=== PATIENT | female | born 1965 | race Caucasian/White ===

== ENCOUNTER 2023-10-23 23:04 | Emergency (ER) | payer OTHER, SELFPAY ==
--- NOTE | ~2023-10-23 | XR_ITS ---
EXAMINATION: XR CHEST CLINICAL INFORMATION: Chest pain. COMPARISON: None available at the moment of this dictation. TECHNIQUE: 2 views of the chest were obtained. FINDINGS: Prominent cardiomediastinal silhouette. Mild central vasculature congestion. No focal consolidation, pleural effusion or pneumothorax. No pulmonary edema. Thoracolumbar shanon with a gap and posterior displacement at the level of the mid thoracic spine best visualized on the lateral view. XR/XR chest 2V IMPRESSION: 1. Prominent cardiomediastinal silhouette with mild central vasculature congestion. 2. No focal consolidation. Clear pleural spaces. 3. Thoracolumbar shanon with a gap and posterior displacement at the level of the mid thoracic spine concerning for hardware fracture/failure. No prior studies are available for comparison at the moment of this examination. Recommend clinical correlation to determine further management.
[2023-10-23 23:30] VITALS: BP 152/86; BP 156/71; PULSE 87; RESP 20; TEMP 36.8; O2SAT 95; O2SAT 98; BMI 33.5
--- NOTE | 2023-10-23 23:32 | ED.GENADULT ---
HPI - General Adult General Chief complaint: Upper Respiratory Symptoms Stated complaint: sob Time Seen by Provider: 10/23/23 23:32 Source: patient, RN notes reviewed and other (Facility records) Limitations: no limitations History of Present Illness HPI narrative: 58-year-old female who has a history of hypertension, hypothyroidism, asthma, insomnia, presents from [facility] where she is currently being evaluated for suicidal ideation. Patient reports that she had generalized body aches, chest pain shortness of breath that began this morning. She was given a respiratory treatment as well as have an EKG performed. Because her symptoms persisted, she presents to the emergency department at this time. She does have a history of cocaine use as well as tobacco use. Currently she is complaining of shortness of breath and chest pain. No change with exertion. Related Data Previous Rx's Medication Instructions Recorded benzonatate 100 mg capsule 100 mg PO TID PRN cough #20 caps 10/24/23 Allergies Allergy/AdvReac Type Severity Reaction Status Date / Time No Known Allergies Allergy Verified 10/23/23 23:27 Review of Systems Constitutional: Constitutional: Reports body ache(s), Denies chills, Denies fever(s) and Denies headache(s) Eyes: Eyes: Denies change in vision and Denies other (No redness.) ENT: Denies headache(s), Denies nasal congestion, Denies nasal discharge, Denies neck pain and Denies sore throat Cardiovascular: Cardiovascular: Denies chest pain, Denies palpitations, Reports dyspnea, Denies dyspnea on exertion and Denies orthopnea Respiratory: Respiratory: Denies cough, Reports dyspnea and Denies dyspnea on exertion Gastrointestinal: Gastrointestinal: Denies abdominal pain, Denies melena, Denies hematochezia, Denies diarrhea, Denies nausea and Denies vomiting Genitourinary: Genitourinary: Denies dysuria and Denies urinary urgency Musculoskeletal: Musculoskeletal: Denies back pain, Denies muscle weakness, Denies neck pain and Denies numbness Integumentary/Breasts: Skin/Breast: Denies rash Neurologic: Denies headache(s), Denies focal weakness and Denies numbness Psychiatric: Psychiatric: Denies depression Endocrine: Endocrine: Denies palpitations PMFSH Past Medical History Source: old records reviewed Onset Date is defined in the Problem List Problems that require an onset date and time if occurred within 24 hrs of arrival to the ED Aortic Dissection and Rupture; Neurologic impairment; Cardiopulmonary Arrest; Endotracheal Intubation; Insertion or Replacement of Mechanical Circulatory Assist Device Social History Social History Smoked in Last 30 Days: No Advance Directives: No Advance Directives Information Provided: Yes Patient : No Physical Exam ED Vital Signs: Vital Signs - 24 hr 10/23/23 23:30 10/24/23 00:00 10/24/23 02:14 Temperature 98.2 F 101.9 F H Pulse Rate 87 87 96 Respiratory Rate 20 20 21 H Blood Pressure 156/71 H 143/78 H Pulse Oximetry 95 93 Oxygen Delivery Method Room Air Room Air 10/24/23 02:42 Temperature Pulse Rate Respiratory Rate Blood Pressure Pulse Oximetry 95 Oxygen Delivery Method Room Air BMI result Body Mass Index 33.5 Speaks full clear sentences Const General: cooperative Resp Other: Diminished in the bases bilaterally with fine wheezes. Clear in the apices. Cardio Rate: regular rate Rhythm: regular rhythm GI Other: Abdomen is soft without tenderness throughout. No peritoneal signs. Extrem Other: No calf tenderness or pedal edema Course Course Course Narrative: 12:30 a.m. patient is viral swab is positive for influenza A. 1:15 a.m. reviewed all labs and imaging with the patient. No acute process except for influenza A. Chest x-ray demonstrates possible hardware failure with a shanon that the patient has in her back. I have discussed this with the patient. She reports that she is aware of this and it has been a chronic condition and she is followed by a physician at [facility]. She reports that she has not a surgical candidate for this. She has chronic back pain due to her back condition. The patient is otherwise hemodynamically stable. Good improvement with respiratory treatment. Patient will be discharged back to [facility] so she may continue her treatment. Medications Administered Discontinued Medications Generic Name Dose Route Start Last Admin Trade Name Freq PRN Reason Stop Dose Admin Acetaminophen 650 mg 10/24/23 02:21 10/24/23 02:30 Acetaminophen 325 Mg Tablet PO 10/24/23 02:22 650 mg ONCE ONE Administration Albuterol Sulfate 2.5 mg 10/23/23 23:40 10/23/23 23:59 Albuterol Sulfate (0.083%) 2.5 Mg/3 Ml Vial.Neb INHALE 10/23/23 23:41 2.5 mg ONCE ONE Administration Benzonatate 100 mg 10/24/23 01:49 10/24/23 02:04 Benzonatate 100 Mg Capsule PO 10/24/23 01:50 100 mg ONCE ONE Administration Potassium Chloride 40 meq 10/24/23 00:52 10/24/23 01:32 Potassium Chloride Packet 20 Meq Packet PO 10/24/23 00:53 40 meq ONCE ONE Administration Medical Decision Making Medical Decision Making MDM Narrative: 58-year-old female presents from [facility] here for shortness of breath and chest pain. Patient with a history of asthma as well as chest pain. Check labs, EKG, chest x-ray. Viral swab. Respiratory treatment Differential Diagnosis Differential Diagnoses: The differential diagnosis associated with the presentation includes Pneumonia Bronchitis Viral syndrome including COVID or influenza Metabolic abnormality Dehydration Admission/Observation Consideration of admission/observation: Escalation of care including admission/observation considered Considered if clinically warranted Lab Data 10/24/23 00:20 10/24/23 00:20 Labs: Lab Results 10/24/23 Range/Units 00:20 WBC 7.7 (4.8-10.8) X10*3/uL RBC 4.18 L (4.20-5.50) X10*6/uL Hgb 12.4 (12.0-16.0) g/dl Hct 37.7 (37.0-47.0) % MCV 90.2 (80.0-98.0) fL MCH 29.7 (27.0-33.0) pg MCHC 32.9 (31.0-35.0) g/dl RDW 13.8 (11.0-16.0) % Plt Count 292 (160-400) X10*3/uL MPV 9.3 L (9.4-12.3) fL Immature Gran % (Auto) 0.5 H (0.0-0.4) % Neut % (Auto) 60.4 (45-73) % Lymph % (Auto) 19.7 L (20-40) % [place] % (Auto) 12.0 H (2-11) % Eos % (Auto) 6.7 H (0-4) % Baso % (Auto) 0.7 (0-2) % Lymph # (Auto) 1.5 (1.2-4.9) X10*3/uL [place] # (Auto) 0.9 (0.1-1.2) X10*3/uL Eos # (Auto) 0.5 H (0.0-0.4) X10*3/uL Baso # (Auto) 0.1 (0.0-0.2) X10*3/uL Abs Immat Gran (auto) 0.04 H (0.00-0.03) X10*3/uL Absolute Neuts (auto) 4.6 (2.0-8.3) x10*3/uL Absolute Nucleated RBC 0.000 (0.0-0.012) X10*3/uL Nucleated RBC % (auto) 0.0 (0.0-0.2) /100WBC Sodium 142 (135-145) mmol/L Potassium 3.1 L (3.3-5.1) mmol/L Chloride 103 (96-108) mmol/L Carbon Dioxide 28 (22-29) mmol/L Anion Gap 14 (12-20) BUN 21 H (9-16) mg/dL Creatinine 0.99 (0.5-1.4) mg/dL Estim Creat Clear Calc 60.2 Estimated GFR 58 Random Glucose 146 H (60-115) mg/dL Calcium 9.5 (8.4-10.2) mg/dL Troponin I High Sens 14.1 (<3.5-17.0) ng/L Urine Color Yellow Urine Appearance Clear Urine pH 5.5 (5.0-9.0) Ur Specific [place] 1.015 (1.005-1.025) Urine Protein Negative (Neg-Trace) mg/dL Urine Glucose (UA) Negative (Negative) mg/dL Urine Ketones Negative (Negative) mg/dL Urine Blood Negative (Negative) Urine Nitrite Negative (Negative) Ur Leukocyte Esterase Trace H (Negative) Urine RBC 0-2 (0-2) /HPF Urine WBC 0-5 (0-5) /HPF Ur Squamous Epith Cells 0-2 (0-2) /HPF Urine Bacteria 2+ (None Seen) Hyaline Casts 0-2 (0-2) /LPF COVID-19 (JACK) Negative (Negative) COVID-19 Clin Com See Note Influenza Type A (SOFIA) Positive A (Negative) Influenza Type B (SOFIA) Negative (Negative) Influenza A & B Note See Note Independent Interpretation I performed an independent interpretation of an: EKG (80 beats per minute without any acute ischemic changes.) Discharge Plan Discharge Clinical Impression: Influenza A Upper respiratory infection Qualifiers: Airway obstruction: without obstruction Patient Disposition: Home, Self-Care Instructions: Influenza (ED) Additional Instructions: Your viral test today is positive for influenza A. Your potassium was slightly low today. We gave you potassium by mouth. You may need to have this rechecked in the next week. Continue albuterol treatments as directed. Tylenol or ibuprofen for pain or fever. Follow-up with your primary care provider. Call this week to schedule a follow-up appointment. Return to the emergency department if you have any worsening of symptoms, or any concerns. Get well soon! Prescriptions: New benzonatate 100 mg capsule 100 mg PO TID PRN (Reason: cough) Qty: 20 0RF Interventions: ED Discharge Assessment Last Done: 10/24/23 03:54 Discharge Date/Time: 10/24/23 03:30 Print Language: Spanish
--- NOTE | 2023-10-23 23:40 | ECG_ITS ---
Test Reason : CHEST PAIN Blood Pressure : / mmHG Vent. Rate : 080 BPM Atrial Rate : 080 BPM P-R Int : 166 ms QRS Dur : 106 ms QT Int : 388 ms P-R-T Axes : 066 -03 056 degrees QTc Int : 447 ms Normal sinus rhythm Minimal voltage criteria for LVH, may be normal variant ( Penrose product ) Borderline ECG When compared with ECG of 25-NOV-2009 16:24, Nonspecific T wave abnormality now evident in Lateral leads Referred By: Jac Negron Electronically Signed By:SIVAN AMEZQUITA MD
[2023-10-23] MEDS: Albuterol Sulfate (0.083%) 2.5 MG/3 ML VIAL.NEB INHALE (23:59)
[2023-10-24] VITALS: PULSE 87; RESP 20; O2SAT 97
[2023-10-24 00:28] LABS: MANUAL DIFF FLAG NO
[2023-10-24 00:32] LABS: Basophils Absolute Auto 0.1 X10*3/uL (0.0-0.2); Basophils Percent Auto 0.7 % (0-2); Eosinophils Absolute Auto 0.5 X10*3/uL (0.0-0.4); Eosinophils Percent Auto 6.7 % (0-4); Hematocrit 37.7 % (37.0-47.0); Hemoglobin 12.4 g/dl (12.0-16.0); Imm Gran Abs Auto 0.04 X10*3/uL (0.00-0.03); Imm Gran Pct Auto 0.5 % (0.0-0.4); Lymphocytes Absolute Auto 1.5 X10*3/uL (1.2-4.9); Lymphocytes Percent Auto 19.7 % (20-40); Mean Corpuscular HGB Conc 32.9 g/dl (31.0-35.0); Mean Corpuscular Hemoglobin 29.7 pg (27.0-33.0); Mean Corpuscular Volume 90.2 fL (80.0-98.0); Mean Platelet Volume 9.3 fL (9.4-12.3); Monocytes Absolute Auto 0.9 X10*3/uL (0.1-1.2); Neutrophils Absolute Auto 4.6 x10*3/uL (2.0-8.3); Neutrophils Percent Auto 60.4 % (45-73); Platelet Count 292 X10*3/uL (160-400); Red Blood Count 4.18 X10*6/uL (4.20-5.50); Red Cell Distribution Width 13.8 % (11.0-16.0); White Blood Count 7.7 X10*3/uL (4.8-10.8)
[2023-10-24 00:33] LABS: Appearance Urine Clear; Color Urine Yellow; Glucose Urine UA Negative (Negative); Leukocyte Esterase Urine Trace (Negative); Nitrite Urine Negative (Negative); PH 5.5 (5.0-9.0); Specific Gravity - Urine 1.015 (1.005-1.025); UMIC TRIGGER UA YES; Urine Blood Negative (Negative); Urine Ketones Negative (Negative); Urine Protein Negative (Neg-Trace)
[2023-10-24 00:38] LABS: Bacteria Urine 2+ (None Seen); Hyaline Casts Urine 0-2 /LPF (0-2); RBC Urine 0-2 /HPF (0-2); Squamous Epithelial Cell Urine 0-2 /HPF (0-2); WBC Urine 0-5 /HPF (0-5)
[2023-10-24 00:41] LABS: COVID-19 Test Negative (Negative); IDNOW Serial# 6674DD1D
[2023-10-24 00:44] LABS: IDNOW Serial# 58CA691E; Influenza A Positive (Negative); Influenza B2 Negative (Negative)
[2023-10-24 00:45] LABS: Anion Gap 14 (12-20); Blood Urea Nitrogen 21 mg/dL (9-16); Carbon Dioxide 28 mmol/L (22-29); Chloride 103 mmol/L (96-108); Creatinine Clr Calc Pharmacy 60.2; Estimated Glomerular Filt Rate 58; Potassium 3.1 mmol/L (3.3-5.1); Sodium 142 mmol/L (135-145)
[2023-10-24 00:46] LABS: Calcium 9.5 mg/dL (8.4-10.2); Glucose Random 146 mg/dL (60-115)
[2023-10-24 00:50] LABS: Troponin-I High Sensitivity 14.1 ng/L (<3.5-17.0)
[2023-10-24] MEDS: Potassium Chloride Packet 20 MEQ PACKET 40 MEQ PO (01:32)
[2023-10-24] MEDS: Benzonatate 100 MG CAPSULE PO (02:04)
[2023-10-24 02:14] VITALS: BP 143/78; PULSE 96; RESP 21; TEMP 38.8; O2SAT 93
[2023-10-24] MEDS: Acetaminophen 325 MG TABLET 650 MG PO (02:30)
[2023-10-24 02:42] VITALS: PULSE 89; O2SAT 95
== END 2023-10-24 03:30 | disposition home or self-care (01) ==
PROVIDERS: Physician Assistant; Emergency Provider Emergency Medicine
DX: J10.1 Influenza due to other identified influenza virus with other respiratory manifestations (principal); R07.89 Other chest pain; R06.02 Shortness of breath; R45.851 Suicidal ideations; Z11.52 Encounter for screening for COVID-19; Z20.828 Contact with and (suspected) exposure to other viral communicable diseases; Z79.899 Other long term (current) drug therapy
CPT/HCPCS: 71046; 80048; 81001; 84484; 85025; 87502; 87635; 93005; 94640; 99284; 99285

== ENCOUNTER → 2023-10-23 23:40 | Outpatient (BNV) | payer OTHER, SELFPAY | PROVIDERS: Emergency Provider Emergency Medicine; Visit Provider Internal Medicine Cardiovascular Disease | DX: R07.9 Chest pain, unspecified (principal) | CPT/HCPCS: 93010 ==